=== PATIENT | male | born 1985 | race Hispanic/Latino ===

== ENCOUNTER 2020-06-14 08:48 | Emergency (ER) | payer OTHER ==
[2020-06-14] MEDS ORDERED: KETOROLAC 30 MG/ML 1ML VIAL As Ordered ONE (11:08)
[2020-06-14] MEDS ORDERED: KETOROLAC 30 MG/ML 1ML VIAL ONE (11:08)
[2020-06-14] MEDS ORDERED: LIDOCAINE 5% (LIDODERM) PATCH As Ordered ONE (11:08)
[2020-06-14] MEDS ORDERED: LIDOCAINE 5% (LIDODERM) PATCH ONE (11:08)
[2020-06-14] MEDS ORDERED: CYCLOBENZAPRINE 10MG TABLET As Ordered ONE (11:09)
[2020-06-14] MEDS ORDERED: CYCLOBENZAPRINE 10MG TABLET ONE (11:09)
== END 2020-06-14 10:11 | disposition home or self-care (01) ==
LOC: M ED 08:48
DX: S32.038A Other fracture of third lumbar vertebra, initial encounter for closed fracture (principal); S39.012A Strain of muscle, fascia and tendon of lower back, initial encounter; X50.9XXA Other and unspecified overexertion or strenuous movements or postures, initial encounter; Y92.89 Other specified places as the place of occurrence of the external cause; Y93.B9 Activity, other involving muscle strengthening exercises; M51.27 Other intervertebral disc displacement, lumbosacral region; Z88.0 Allergy status to penicillin; Z88.1 Allergy status to other antibiotic agents; E73.9 Lactose intolerance, unspecified
CPT/HCPCS: 72131; 96372; 99282; J1885

== ENCOUNTER 2020-11-13 01:15 | Emergency (ER) | payer OTHER ==
[~2020-11-13] VITALS: Ht 170.2 cm; Wt 81.4 kg
--- OUTSIDE RECORDS SUMMARY | 2020-11-13 01:21 | CCD | Continuity of Care Document ---
Author Author Wally ALMARAZ PA Organization Unknown Address [address] [place] [address], [address] [place] [address] Phone [phone] Care Team Providers Care Marketing Research Analyst Name Role Phone Tarun Khalil MD AUTM Unavailable January PADILLA AUTM [phone] Problems Description No Information Available Social History Type Date Description Comments Sex Unknown Allergies, Adverse Reactions, Alerts Description No Information Available Medications Active Medications SIG Qnty Indications Ordering Provide r Date Tizanidine HCL 4mg Capsules 1 by mouth three times a day 60caps DJeremy Caballero MD 07/04 Tramadol HCL 50mg Tablets 1 every 6 hours as needed pain 15tabs S32.038A Lotus Carney MD 0 Immunizations Description No Information Available Vital Signs Date Vital Result Comment 06/15/2020 12:34pm Body Temperature 97.6 F Height 67 inches 5'7" Weight 175.00 lb BMI (Body Mass Index) 27.4 kg/m2 Results Description No Information Available Procedures Date Code Description Status 09/18/2020 71864 X-Ray Spine Lumbosacral Ap & Lat eral 2-3 Views Completed 08/13/2020 99290 X-Ray Spine Lumbosacral Ap & Lat eral 2-3 Views Completed 07/27/2020 70404 X-Ray Spine Lumbosacral Ap & Lat eral 2-3 Views Completed 07/12/2020 33097 X-Ray Spine Lumbosacral Ap & Lat eral 2-3 Views Completed 06/22/2020 41810 X-Ray Spine Lumbosacral Ap & Lat eral 2-3 Views Completed 06/15/2020 62477 X-Ray Spine Thoracolumbar Ap & L ateral 2 Views Completed 06/15/2020 92715 FX CL Vertebral Body Wi Cast/Bra ce Completed Medical Devices Description No Information Available Encounters Type Date Location Provider Dx Diagnosis Office Visit 08/13/2020 3:00p [place] PADILLA De Los Santos S32.038D Oth fracture of third lum vertebra, subs for fx w routn heal Office Visit 07/27/2020 1:45p [place] PADILLA De Los Santos S32.038D Oth fracture of third lum vertebra, subs for fx w routn heal Office Visit 07/12/2020 2:30p [place] PADILLA De Los Santos S32.038D Oth fracture of third lum vertebra, subs for fx w routn heal Office Visit 07/04/2020 11:00a [place] PADILLA De Los Santos S32.038D Oth fracture of third lum vertebra, subs for fx w routn heal Office Visit 06/22/2020 11:30a [place] PADILLA De Los Santos S32.038D Oth fracture of third lum vertebra, subs for fx w routn heal Office Visit 06/15/2020 2:45p [place] PADILLA De Los Santos S32.038A Oth fracture of third lumbar vertebra, init for clos fx Assessments Date Code Description Provider 09/18/2020 S32.038D Other fracture of th ird lumbar vertebra, subsequent encounter for fracture with routine healing PADILLA De [place] Santos 08/13/2020 S32.038D Other fracture of th ird lumbar vertebra, subsequent encounter for fracture with routine healing PADILLA De [place] 07/27/2020 S32.038D Other fracture of th ird lumbar vertebra, subsequent encounter for fracture with routine healing PADILLA De [place] 07/12/2020 S32.038D Other fracture of th ird lumbar vertebra, subsequent encounter for fracture with routine healing PADILLA De [place] 07/04/2020 S32.038D Other fracture of th ird lumbar vertebra, subsequent encounter for fracture with routine healing PADILLA De [place] 06/22/2020 S32.038D Other fracture of th ird lumbar vertebra, subsequent encounter for fracture with routine healing PADILLA De [place] 06/15/2020 S32.038A Other fracture of th ird lumbar vertebra, initial encounter for closed fracture PADILLA De [place] 06/15/2020 S32.038A Other fracture of th ird lumbar vertebra, initial encounter for closed fracture PADILLA De [place] Plan of Treatment 09/18/2020 - PADILLA De [place]* S32.038D Other fracture of third lumbar vertebra, subsequent encounter for fracture with routine healing* Follow up:* 4 weeks with iid back re-check Functional Status Description No Information Available Mental Status Description No Information Available Referrals Refer to Dr Reason for Referral Status Appt Date Shan Almaraz I, Pac PT PER [employer] APPROVAL; FOR 16 VISITS TO BE DONE ON BASE ON LS-SPINE TO CHART NT Created [address] [place] [address] [phone] Shan Almaraz I, Pac DME PER [employer] WEB NO AUTH R EQUIRED FOR VISTA LSO 637) TO [facility] NT Created [address] [place] [phone] Shan Almaraz I, Pac Office Consult New Or Established Pt. Lo w Back Pain. CM Created [address] [place] [address] [phone] Shan Almaraz I, Pac Office/Outpatient Visit Est. Low Back Pain. CM Created [address] [place] [address] [phone] Shan Almaraz I, Pac Office Consult New Or Establ ished Pt. Fracture Thoracic Vertebra. CM Created [facility] [address] [phone] Shan Almaraz I, Pac Office/Outpatient Visit Est. Fracture Thoracic Vertebra. CM Created [address] [place] [phone]
--- OUTSIDE RECORDS SUMMARY | 2020-11-13 01:21 | CCD | Continuity of Care Document ---
Author Author Wally ALMARAZ PA Organization Unknown Address [address] [place] [address], [address] [place] [address] Phone [phone] Care Team Providers Care Company Miner [employer] Name Role Phone Tarun Khalil MD AUTM Unavailable January PADILLA AUTM [phone] Problems Description No Information Available Social History [...] Available Vital Signs Date Vital Result Comment 10/16/2020 4:42pm Body Temperature 97.3 F 06/15/2020 12:34pm Body Temperature 97.6 F Height 67 inches 5'7" Weight 175.00 lb BMI (Body Mass Index) 27.4 kg/m2 Results Description No Information Available Procedures Date Code Description Status 10/16/2020 68197 X-Ray Spine Lumbosacral Ap & Lat eral 2-3 Views Completed 09/18/2020 57788 X-Ray Spine Lumbosacral Ap & Lat eral 2-3 Views Completed 08/13/2020 66445 X-Ray Spine Lumbosacral Ap & Lat eral 2-3 Views Completed 07/27/2020 67653 X-Ray Spine Lumbosacral Ap & Lat eral 2-3 Views Completed 07/12/2020 98130 X-Ray Spine Lumbosacral Ap & Lat eral 2-3 Views Completed 06/22/2020 60490 X-Ray Spine Lumbosacral Ap & Lat eral 2-3 Views Completed 06/15/2020 62568 X-Ray Spine Thoracolumbar Ap & L ateral 2 Views Completed 06/15/2020 85148 FX CL Vertebral Body Wi Cast/Bra ce Completed Medical Devices Description No Information Available Encounters Type Date Location Provider Dx Diagnosis Office Visit 10/16/2020 3:45p [place] PADILLA De Los Santos S32.038D Oth fracture of third lum vertebra, subs for fx w routn heal Office Visit 09/18/2020 3:45p [place] PADILLA De Los Santos S32.038D Oth fracture of third lum vertebra, subs for fx w routn heal Office Visit 08/13/2020 3:00p [place] PADILLA De Los Santos S32.038D Oth fracture of third lum vertebra, subs for fx w routn heal Office Visit 07/27/2020 1:45p [place] PADILLA De Los Santos S32.038D Oth fracture of third lum vertebra, subs for fx w routn heal Office Visit 07/12/2020 2:30p [place] PADILLA De Los Santos S32.038D Oth fracture of third lum vertebra, subs for fx w routn heal Office Visit 07/04/2020 11:00a [place] PADILLA De Los Santos S32.038D Oth fracture of third lum vertebra, subs for fx w routn heal Office Visit 06/22/2020 11:30a [place] PADILLA De Los Santos S32.038D Oth fracture of third lum vertebra, subs for fx w routn heal Office Visit 06/15/2020 2:45p [place] PADILLA De Los Santos S32.038A Oth fracture of third lumbar vertebra, init for clos fx Assessments Date Code Description Provider 10/16/2020 S32.038D Other fracture of th ird lumbar vertebra, subsequent encounter for fracture with routine healing PADILLA De [place] Santos 09/18/2020 S32.038D Other fracture of th ird [...] PADILLA De Los Santos Plan of Treatment Future Appointment(s):* 11/16/2020 12:20 pm - PADILLA De Los Santos at [place] 10/16/2020 - PADILLA De Los Santos* S32.038D Other fracture of third lumbar vertebra, subsequent encounter for fracture with routine healing* Follow up:* 4 weeks with IID via telemed for back recheck Functional Status Description No Information Available Mental Status Description No Information Available Referrals Refer to Dr Reason for Referral Status Appt Date Shan Almaraz Pac PT PER [employer] APPROVAL; FOR 16 VISITS TO BE DONE ON BASE ON LS-SPINE TO CHART NT Created [facility] [address] [place] [address] [phone] Shan Almaraz Pac DME PER [employer] WEB NO AUTH R EQUIRED FOR VISTA LSO 637) TO ALEC NT Created [facility] [address] [address] [phone] Shan Almaraz Pac Office Consult New Or Established Pt. Lo w Back Pain. Created [address] [place] [address] [phone] Shan Almaraz I, Pac Office/Outpatient Visit Est. Low Back Pain. Created [address] [place] [address] [phone] Shan Almaraz I, Pac Office Consult New [place] Establ ished Pt. Fracture Thoracic Vertebra. Created [address] [place] [address] [phone] Shan Almaraz I, Pac Office/Outpatient Visit Est. Fracture Thoracic Vertebra. Created [address] [place] [address] [phone]
--- OUTSIDE RECORDS SUMMARY | 2020-11-13 01:21 | CCD | Continuity of Care Document ---
Author Author Wally ALMARAZ PA Organization Unknown Address [address] [place] [address], [address] [place] [address] Phone [phone] Care Team Providers Care Associate Consulting Engineer Name Role Phone Tarun Khalil MD AUTM Unavailable January PADILLA AUTM [phone] Problems Description No Information Available Social History [...] Available Procedures Date Code Description Status 09/18/2020 00412 X-Ray Spine Lumbosacral Ap & Lat eral 2-3 Views Completed 08/13/2020 53717 X-Ray Spine Lumbosacral Ap & Lat eral 2-3 Views Completed 07/27/2020 11693 X-Ray Spine Lumbosacral Ap & Lat eral 2-3 Views Completed 07/12/2020 21511 X-Ray Spine Lumbosacral Ap & Lat eral 2-3 Views Completed 06/22/2020 36446 X-Ray Spine Lumbosacral Ap & Lat eral 2-3 Views Completed 06/15/2020 55195 X-Ray Spine Thoracolumbar Ap & L ateral 2 Views Completed 06/15/2020 91141 FX CL Vertebral Body Wi Cast/Bra ce Completed Medical Devices Description No Information Available Encounters Type Date Location Provider Dx Diagnosis Office Visit 09/18/2020 3:45p [place] PADILLA De Los Santos S32.038D Oth fracture of third lum vertebra, subs for fx w routn heal Office Visit 08/13/2020 3:00p [place] PADILLA De Los Santos S32.038D Oth fracture of third lum vertebra, subs for fx w routn heal Office Visit 07/27/2020 1:45p [place] PADILLA De Los Santos S32.038D Oth fracture of third lum vertebra, subs for fx w routn heal Office Visit 07/12/2020 2:30p [place] PADILLA De Los Santos S32.038D Oth fracture of third lum vertebra, subs for fx w routn heal Office Visit 07/04/2020 11:00a [place] PADILLA De Los Santos S32.038D Oth fracture of third lum vertebra, subs for fx w routn heal Office Visit 06/22/2020 11:30a [place] PADILLA De Los Santos S32.038D Oth fracture of third lum vertebra, subs for fx w routn heal Office Visit 06/15/2020 2:45p [place] PADILLA De Los Santos S32.038A Oth fracture [...] [place] Plan of Treatment Future Appointment(s):* 10/16/2020 3:45 pm - PADILLA De Los Santos at [place] 09/18/2020 - PADILLA De Los Santos* S32.038D Other fracture of third lumbar vertebra, subsequent encounter for fracture with routine healing* Follow up:* 4 weeks with IID back re-check Functional Status Description No Information Available Mental Status Description No Information Available Referrals Refer to Dr Reason for Referral Status Appt Date Shan Almaraz I, Pac PT PER [employer] APPROVAL; FOR 16 VISITS TO BE DONE ON BASE ON LS-SPINE TO CHART NT Created [facility] [place] [address] [phone] Shan Almaraz I, Pac DME PER [employer] WEB NO AUTH R EQUIRED FOR VISTA LSO 637) TO [facility] NT Created [address] [place] [phone] Shan Almaraz I, Pac Office Consult New Or Established Pt. Lo w Back Pain. CM Created [place] [address] [phone] Shan Almaraz I, Pac Office/Outpatient Visit Est. Low Back Pain. CM Created [place] [address] [phone] Shan Almaraz I, Pac Office Consult New [place] Establ ished Pt. Fracture Thoracic Vertebra. CM Created [facility] [address] [address] [phone] Shan Almaraz I, Pac Office/Outpatient Visit Est. Fracture Thoracic Vertebra. CM Created [facility] [address] [address] [phone]
--- OUTSIDE RECORDS SUMMARY | 2020-11-13 01:21 | CCD | Continuity of Care Document ---
Author Author Wally ALMARAZ PA Organization Unknown Address [address] [facility], [address] [place] [address] Phone [phone] Care Team Providers Care Dried Yeast Supervisor Name Role Phone Tarun Khalil MD AUTM Unavailable January PADILLA AUTM [phone] Problems Description No Information Available Social History [...] Available Procedures Date Code Description Status 10/16/2020 85957 X-Ray Spine Lumbosacral Ap & Lat eral 2-3 Views Completed 09/18/2020 29507 X-Ray Spine Lumbosacral Ap & Lat eral 2-3 Views Completed 08/13/2020 40269 X-Ray Spine Lumbosacral Ap & Lat eral 2-3 Views Completed 07/27/2020 09269 X-Ray Spine Lumbosacral Ap & Lat eral 2-3 Views Completed 07/12/2020 77284 X-Ray Spine Lumbosacral Ap & Lat eral 2-3 Views Completed 06/22/2020 35942 X-Ray Spine Lumbosacral Ap & Lat eral 2-3 Views Completed 06/15/2020 86353 X-Ray Spine Thoracolumbar Ap & L ateral 2 Views Completed 06/15/2020 36201 FX CL Vertebral Body Wi Cast/Bra ce Completed Medical Devices Description No Information Available Encounters Type Date Location Provider Dx Diagnosis Office Visit 09/18/2020 3:45p [place] PADILLA De Los Santos S32.038D Oth fracture of third lum vertebra, subs for fx w routn heal Office Visit 08/13/2020 3:00p [place] PADILLA De Los Santos S32.038D Oth fracture of third lum vertebra, subs for fx w routn heal Office Visit 07/27/2020 1:45p [place] PADILLA De Los Santos S32.038D Oth fracture of third lum vertebra, subs for fx w routn heal Office Visit 07/12/2020 2:30p [place] PADILLA De Los Santos S32.038D Oth fracture of third lum vertebra, subs for fx w routn heal Office Visit 07/04/2020 11:00a [place] PADILLA De Los Santos S32.038D Oth fracture of third lum vertebra, subs for fx w routn heal Office Visit 06/22/2020 11:30a [place] PADILLA De Los Santos S32.038D Oth fracture of third lum vertebra, subs for fx w routn heal Office Visit 06/15/2020 2:45p [place] PADILLA De Los Santos S32.038A Oth fracture [...] PADILLA De Los Santos Plan of Treatment 10/16/2020 - PADILLA De [place]* S32.038D [...] BASE ON LS-SPINE TO CHART NT Created [address] [place] [address] [phone] Shan Almaraz I, Pac DME PER [employer] WEB NO AUTH R EQUIRED FOR VISTA LSO 637) TO ALEC NT Created [address] [place] [phone] Shan Almaraz I, Pac Office Consult New Or Established Pt. Lo w Back Pain. CM Created [address] [place] [address] [phone] Shan Almaraz I, Pac Office/Outpatient Visit Est. Low Back Pain. CM Created [address] [place] [address] [phone] Shan Almaraz I, Pac Office Consult New [place] Establ ished Pt. Fracture Thoracic Vertebra. CM Created [address] [place] [address] [phone] Shan Almaraz I, Pac Office/Outpatient Visit Est. Fracture Thoracic Vertebra. Created [address] [place] [address] [phone]
--- OUTSIDE RECORDS SUMMARY | 2020-11-13 01:22 | CCD | Continuity of Care Document ---
Author Author Wally ALMARAZ PA Organization Unknown Address [address] [place] [address], [address] [place] [address] Phone [phone] Care Team Providers Care Nitriles Lab Technician Name Role Phone Tarun Khalil MD [facility] Unavailable Problems Description No Information Available Social History [...] Information Available Procedures Date Code Description Status 08/13/2020 86329 X-Ray Spine Lumbosacral Ap & Lat eral 2-3 Views Completed 07/27/2020 12526 X-Ray Spine Lumbosacral Ap & Lat eral 2-3 Views Completed 07/12/2020 80043 X-Ray Spine Lumbosacral Ap & Lat eral 2-3 Views Completed 06/22/2020 65715 X-Ray Spine Lumbosacral Ap & Lat eral 2-3 Views Completed 06/15/2020 69019 X-Ray Spine Thoracolumbar Ap & L ateral 2 Views Completed 06/15/2020 45740 FX CL Vertebral Body Wi Cast/Bra ce Completed Medical Devices Description No Information Available Encounters Type Date Location Provider Dx Diagnosis Office Visit 08/13/2020 3:00p [place] PADILLA De Los Santos S32.038D Oth fracture of third lum vertebra, subs for fx w routn heal Office Visit 07/27/2020 1:45p [place] PADILLA De Los Santos S32.038D Oth fracture of third lum vertebra, subs for fx w routn heal Office Visit 07/12/2020 2:30p [place] PADILLA De Los Santos S32.038D Oth fracture of third lum vertebra, subs for fx w routn heal Office Visit 07/04/2020 11:00a [place] PADILLA De Los Santos S32.038D Oth fracture of third lum vertebra, subs for fx w routn heal Office Visit 06/22/2020 11:30a [place] PADILLA De Los Santos S32.038D Oth fracture of third lum vertebra, subs for fx w routn heal Office Visit 06/15/2020 2:45p [place] PADILLA De Los Santos S32.038A Oth fracture of third lumbar vertebra, init for clos fx Assessments Date Code Description Provider 08/13/2020 S32.038D Other fracture of th ird [...] [place] Plan of Treatment Future Appointment(s):* 09/18/2020 3:45 pm - PADILLA De Los Santos at [place] 08/13/2020 - PADILLA De Los [place]* S32.038D Other fracture of third lumbar vertebra, subsequent encounter for fracture with routine healing* Follow up:* 4-6 weeks with IID for back recheck with lumbar xrays Functional Status Description No Information Available Mental Status Description No Information Available Referrals Refer to Dr Reason for Referral Status Appt Date Shan Almaraz I, Pac PT PER [employer] APPROVAL; FOR 16 VISITS TO BE DONE ON BASE ON LS-SPINE TO CHART NT Created [address] [place] [address] [phone] Shan Almaraz I, Pac DME PER [employer] WEB NO AUTH R EQUIRED FOR VISTA LSO 637) TO [facility] NT Created [address] [place] [address] [phone] Shan Almaraz I, Pac Office Consult New Or Established Pt. Lo w Back Pain. CM Created [address] [place] [address] [phone] Shan Almaraz I, Pac Office/Outpatient Visit Est. Low Back Pain. CM Created [facility] [place] [address] [phone] Shan Almaraz I, Pac Office Consult New [place] Establ ished Pt. Fracture Thoracic Vertebra. CM Created [facility] [place] [address] [phone] Shan Almaraz I, Pac Office/Outpatient Visit Est. Fracture Thoracic Vertebra. CM Created [facility] [place] [address] [phone]
--- OUTSIDE RECORDS SUMMARY | 2020-11-13 01:22 | CCD ---
Author Author [facility] Organization [facility] Address Unknown Phone Unavailable Care Team Providers Care Currency Exchange Specialist Name Role Phone DRAZEK, I SHANNAN PA Unavailable Unavailable DRAZEK, I SHANNAN PA Unavailable Unavailable DRAZEK, I SHANNAN PA Unavailable Unavailable DRAZEK, I SHANNAN PA Unavailable Unavailable DRAZEK, I SHANNAN PA Unavailable Unavailable DRAZEK, I SHANNAN PA Unavailable Unavailable DRAZEK, I SHANNAN PA Unavailable Unavailable DRAZEK, I SHANNAN PA Unavailable Unavailable DRAZEK, I SHANNAN PA Unavailable Unavailable DRAZEK, I SHANNAN PA Unavailable Unavailable DRAZEK, I SHANNAN PA Unavailable Unavailable DRAZEK, I SHANNAN PA Unavailable Unavailable DRAZEK, I SHANNAN PA Unavailable Unavailable DRAZEK, I SHANNAN PA Unavailable Unavailable DRAZEK, I SHANNAN PA Unavailable Unavailable DRAZEK, I SHANNAN PA Unavailable Unavailable DRAZEK, I SHANNAN PA Unavailable Unavailable DRAZEK, I SHANNAN PA Unavailable Unavailable DRAZEK, I SHANNAN PA Unavailable Unavailable DRAZEK, I SHANNAN PA Unavailable Unavailable DRAZEK, I SHANNAN PA Unavailable Unavailable DRAZEK, I SHANNAN PA Unavailable Unavailable DRAZEK, I SHANNAN PA Unavailable Unavailable DRAZEK, I SHANNAN PA Unavailable Unavailable DRAZEK, I SHANNAN PA Unavailable Unavailable DRAZEK, I SHANNAN PA Unavailable Unavailable DRAZEK, I SHANNAN PA Unavailable Unavailable DRAZEK, I SHANNAN PA Unavailable Unavailable DRAZEK, I SHANNAN PA Unavailable Unavailable DRAZEK, I SHANNAN PA Unavailable Unavailable Re-disclosure Warning The records that you are about to access may contain information from federally-assisted alcohol or drug abuse programs. If such information is present, then the following federally mandated warning applies: This information has been disclosed to you from records protected by federal confidentiality rules (42 CFR part 2). The federal rules prohibit you from making any further disclosure of this information unless further disclosure is expressly permitted by the written consent of the person to whom it pertains or as otherwise permitted by 42 CFR part 2. A general authorization for the release of medical or other information is NOT sufficient for this purpose. The Federal rules restrict any use of the information to criminally investigate or prosecute any alcohol or drug abuse patient.The records that you are about to access may contain highly sensitive health information, the redisclosure of which is protected by Article 27-F of the [facility] Public Health law. If you continue you may have access to information: Regarding HIV / AIDS; Provided by facilities licensed or operated by the [facility] Office of Mental Health; or Provided by the [facility] Office for People With Developmental Disabilities. If such information is present, then the following [facility] mandated warning applies: This information has been disclosed to you from confidential records which are protected by state law. State law prohibits you from making any further disclosure of this information without the specific written consent of the person to whom it pertains, or as otherwise permitted by law. Any unauthorized further disclosure in violation of state law may result in a fine or intermediate sentence or both. A general authorization for the release of medical or other information is NOT sufficient authorization for further disc losure. Encounters Encounter Providers Location Date Indications Data Source(s ) Outpatient Attender: SHANNAN CAUSEY Physical Therapy 10/16/2020 0 2:45:00 PM EST [facility] ([facility]) Outpatient Attender: SHANNAN CAUSEY Physical Therapy 09/18/2020 0 2:45:00 PM EST [facility] ([facility]) Office Visit Attender: SHANNAN CAUSEY Physical Therapy 2019 03:00:00 PM EDT [facility] ([facility]) Office Visit Attender: SHANNAN CAUSEY Physical Therapy 2019 01:45:00 PM EDT [facility] ([facility]) Office Visit Attender: SHANNAN CAUSEY Physical Therapy 2019 02:30:00 PM EDT [facility] ([facility]) Office Visit Attender: SHANNAN CAUSEY Physical Therapy 2019 11:00:00 AM EDT [facility] ([facility]) Office Visit Attender: SHANNAN CAUSEY Physical Therapy 2019 11:30:00 AM EDT [facility] ([facility]) OFFICE OUTPATIENT NEW 30 MINUTES Attender: SHANNAN CAUSEY Physic al Therapy 06/15/2020 02:45:00 PM EDT [facility] ([facility]) Medications Medication Brand Name Start Date Product Form Dose Route Admi nistrative Instructions Pharmacy Instructions Status Indications Reaction Description Data Source(s) 4 mg 07/04/2020 12:00:00 AM EDT capsule 60 TAKE ONE CAPSULE BY MOUTH THREE TIMES A DAY TAKE ONE CAPSULE BY MOUTH THREE TIMES A DAY SOLD: 07/06/2020 [facility] tizanidine 4 MG Oral Capsule Tizanidine HCL 07/04/2020 12:00:00 AM EDT ORAL active [facility] ([facility]) 50 mg 06/15/2020 12:00:00 AM EDT tablet 15 TAKE 1 TABLET BY MOUTH EVERY 6 HOURS NEEDED FOR PAIN MAXIMUM DAILY DOSE = 4 TAKE 1 TABLET BY MOUTH EVERY 6 HOURS NEEDED FOR PAIN MAXIMUM DAILY DOSE = 4 SOLD: 06/20/2020 [facility] tramadol hydrochloride 50 MG Oral Tablet Tramadol HCL 06/15/2020 12:00:00 AM EDT active [facility] ([facility]) 800 mg 06/14/2020 12:00:00 AM EDT tablet 20 TAKE ONE TABLET BY MOUTH EVERY 6 TO 8 HOURS NEEDED FOR PAIN TAKE ONE TABLET BY MOUTH EVERY 6 TO 8 HO URS NEEDED FOR PAIN SOLD: 06/14/2020 [facility] 5 % 06/14/2020 12:00:00 AM EDT adhesive patch,medicate d 30 APPLY TO AFFECTED AREA(S) ONCE DAILY NEEDED FOR PAIN REMOVE IN LESS THAN 12 HOURS APPLY TO AFFECTED AREA(S) ONCE DAILY NEEDED FOR PAIN REMOVE IN LESS THAN 12 HOURS SOLD: 06/14/2020 [facility] Cyclobenzaprine hydrochloride 5 MG Oral Tablet CYCLOBENZAPRI NE HCL 06/14/2020 12:00:00 AM EDT tablet 10 TAKE ONE TABLET BY MOUTH TWICE A DAY NEEDED FOR SPASMS TAKE ONE TABLET BY MOUTH TWICE A DAY NEEDED FOR SPA SMS SOLD: 06/14/2020 [facility] Insurance Providers Payer name Policy type / Coverage type Policy ID Covered alliance party ID Covered alliance party's relationship to shankar Policy Shankar Plan Information CHRI[employer]Y [employer]O [employer] DUTY [id number] CHRISTY MEDRANO HUMANA - O/P [id number] 18 [id number] Surgeries/Procedures Procedure Description Date Indications Data Source(s) RADEX SPINE LUMBOSACRAL 2/3 VIEWS 10/16/2020 12:00:00 AM EST [facility] ([facility] RADEX SPINE LUMBOSACRAL 2/3 VIEWS 09/18/2020 12:00:00 AM EST [facility] ([facility] RADEX SPINE LUMBOSACRAL 2/3 VIEWS 08/13/2020 12:00:00 AM EDT [facility] ([facility] RADEX SPINE LUMBOSACRAL 2/3 VIEWS 07/27/2020 12:00:00 AM EDT [facility] ([facility] RADEX SPINE LUMBOSACRAL 2/3 VIEWS 07/12/2020 12:00:00 AM EDT [facility] ([facility] RADEX SPINE LUMBOSACRAL 2/3 VIEWS 06/22/2020 12:00:00 AM EDT [facility] ([facility] ) CLTX VRT BDY FX W/O MANJ REQ&W/CSTING/BRACING 06/15/20 20 12:00:00 AM EDT [facility] ([facility] X-Ray Spine Thoracolumbar Ap & Lateral 2 Views 020 12:00:00 AM EDT [facility] ([facility] Vital Signs ID Date Data Source UNK Name Value Range Interpretation Code Description Data Source(s) Body temperature 97.3 [degF] 97.3 [degF] [facility] ([facility] Body mass index (BMI) [Ratio] 27.4 kg/m2 27.4 k g/m2 [facility] ([facility] Body weight 175.00 [lb_av] 175.00 [lb_av] [facility] ([facility] Body height 67 [in_i] 67 [in_i] [facility] ([facility] 5'7" Body temperature 97.6 [degF] 97.6 [degF] [facility] ([facility])
[2020-11-13 03:03] LABS: BASO % 0.3 % (0.0-1.0); EOS # 0.7 10^3/uL (0.0-0.5); EOS % 7.3 % (0.0-3.0); HEMATOCRIT 48.5 % (42.0-52.0); HEMOGLOBIN 16.5 g/dl (13.5-17.5); LYMPH # 3.5 10^3/uL (1.5-5.0); LYMPH % 34.6 % (24.0-44.0); MEAN CORPUSCULAR HEMOGLOBIN 30.9 pg (27.0-33.0); MEAN CORPUSCULAR VOLUME 90.8 fl (80.0-96.0); MONO # 0.7 10^3/uL (0.0-0.8); MONO % 7.2 % (0.0-5.0); NEUTROPHILS # 5.1 10^3/uL (1.5-8.5); NEUTROPHILS % 50.3 % (36.0-66.0); PLATELET COUNT, AUTOMATED 269 10^3/uL (150-450); RED BLOOD COUNT 5.34 10^6/uL (4.30-6.10)
--- OUTSIDE RECORDS SUMMARY | 2020-11-13 03:27 | CCD ---
Author Author [facility] Organization [facility] Address Unknown Phone Unavailable Care Team Providers Care Dry Room Attendant Name Role Phone DRAZEK, I SHANNAN PA [...] is protected by Article 27-F of the [facility] Public Health law. If you continue you may have access to information: Regarding HIV / AIDS; Provided by facilities licensed or operated by the [facility] Office of Mental Health; or Provided by the [facility] Office for People With Developmental Disabilities. If such information is present, then the following [facility] mandated warning applies: This information has been [...] law may result in a fine or snf sentence or both. A general authorization for the release of medical or other information is NOT sufficient authorization for further disc losure. Encounters Encounter Providers Location Date Indications Data Source(s ) Outpatient Attender: SHANNAN CAUSEY Physical Therapy 10/16/2020 0 2:45:00 PM EST [facility] ([facility]) Outpatient Attender: SHANNAN CAUSEY Physical Therapy 09/18/2020 0 2:45:00 PM EST [facility] ([facility]) Office Visit Attender: SHANNAN CAUSEY Physical Therapy 2019 03:00:00 PM EDT [facility] ([facility]) Office Visit Attender: SHANNAN CAUSEY Physical Therapy 2019 01:45:00 PM EDT [facility] ([facility]) Office Visit Attender: SHANNAN CAUSEY Physical Therapy 2019 02:30:00 PM EDT [facility] ([facility]) Office Visit Attender: SHANNAN CAUSEY Physical Therapy 2019 11:00:00 AM EDT [facility] ([facility]) Office Visit Attender: SHANNAN CAUSEY Physical Therapy 2019 11:30:00 AM EDT [facility] ([facility]) OFFICE OUTPATIENT NEW 30 MINUTES Attender: SHANNAN CAUSEY Physic al Therapy 06/15/2020 02:45:00 PM EDT [facility] ([facility]) Medications Medication Brand [...] 07/04/2020 12:00:00 AM EDT ORAL active [facility] ([facility]) 50 mg 06/15/2020 12:00:00 [...] DAY NEEDED FOR SPA SMS SOLD: 06/14/2020 [facility] Insurance Providers Payer name Policy type / Coverage type Policy ID Covered constitution party ID Covered constitution party's relationship to shankar Policy Shankar Plan Information [employer]RI[employer]Y MEDRANO ACT[employer] DUTY [id number] CHRISTY MEDRANO HUMANA - O/P [id number] 18 [id number] Surgeries/Procedures Procedure Description Date Indications Data Source(s) RADEX SPINE LUMBOSACRAL 2/3 VIEWS 10/16/2020 12:00:00 AM EST [facility] ([facility] RADEX SPINE LUMBOSACRAL 2/3 VIEWS 09/18/2020 12:00:00 AM EST [facility] ([facility] ) RADEX SPINE LUMBOSACRAL 2/3 VIEWS 08/13/2020 12:00:00 AM EDT [facility] ([facility] ) RADEX SPINE LUMBOSACRAL 2/3 VIEWS 07/27/2020 12:00:00 AM EDT [facility] ([facility]) RADEX SPINE LUMBOSACRAL 2/3 VIEWS 07/12/2020 12:00:00 AM EDT [facility] ([facility]) RADEX SPINE LUMBOSACRAL 2/3 VIEWS 06/22/2020 12:00:00 AM EDT [facility] ([facility]) CLTX VRT BDY FX W/O MANJ REQ&W/CSTING/BRACING 06/15/20 20 12:00:00 AM EDT [facility] ([facility]) X-Ray Spine Thoracolumbar Ap & Lateral 2 Views 020 12:00:00 AM EDT [facility] ([facility]) Vital Signs ID Date Data Source UNK Name Value Range Interpretation Code Description Data Source(s) Body temperature 97.3 [degF] 97.3 [degF] [facility] ([facility] Body mass index (BMI) [Ratio] 27.4 kg/m2 27.4 k g/m2 [facility] ([facility]) Body weight 175.00 [lb_av] 175.00 [lb_av] [facility] T ([facility]) Body height 67 [in_i] 67 [in_i] [facility] ([facility]) 5'7" Body temperature 97.6 [degF] 97.6 [degF] [facility] ([facility])
[2020-11-13 03:38] LABS: ALBUMIN 4.4 GM/DL (3.2-5.2); ALT/SGPT 59 U/L (12-78); BILIRUBIN,DIRECT 0.1 MG/DL (0.0-0.2); BILIRUBIN,TOTAL 0.5 MG/DL (0.2-1.0); BLOOD UREA NITROGEN 15 MG/DL (7-18); CALCIUM LEVEL 8.8 MG/DL (8.5-10.1); CARBON DIOXIDE LEVEL 29 MEQ/L (21-32); CHLORIDE LEVEL 105 MEQ/L (98-107); CK-MB VALUE MASS 1.4 NG/ML (<3.6); CPK CREATINE PHOSPHOKINASE 216 U/L (39-308); CREATININE FOR GFR 1.09 MG/DL (0.70-1.30); GLOMERULAR FILTRATION RATE > 60.0 (>60); GLUCOSE, FASTING 87 MG/DL (70-100); MB/CK RELATIVE INDEX 0.65 (< OR =4); NT-PRO BNP 9 PG/ML (<125); POTASSIUM SERUM 3.9 MEQ/L (3.5-5.1); SODIUM LEVEL 140 MEQ/L (136-145); TOTAL PROTEIN 7.9 GM/DL (6.4-8.2); TROPONIN I < 0.02 NG/ML (< 0.10)
[2020-11-13] MEDS ORDERED: IPRATROPIUM 0.5MG/ALBUTEROL 2.5MG INH SOL UD 3ML (DUONEB) NEB ONE (04:00)
[2020-11-13] MEDS ORDERED: methylPREDNISolone 125MG 2ML VIAL IV ONE (04:00)
[2020-11-13] MEDS ORDERED: ISOVUE-370 76% 100ML VIAL As Ordered ONE (04:07)
--- NOTE | 2020-11-13 04:10 | REPVR ---
PROCEDURE INFORMATION: Exam: XR Chest, 1 View Exam date and time: 11/13/2020 3:26 AM Age: 35 years old Clinical indication: Cough and dyspnea; Additional info: Dyspnea/cough TECHNIQUE: Imaging protocol: XR of the chest Views: 1 view. COMPARISON: No relevant prior studies available. FINDINGS: Lungs: Unremarkable. No consolidation. Pleural space: Unremarkable. No pleural effusion. No pneumothorax. Heart/Mediastinum: Unremarkable. No cardiomegaly. Bones/joints: Unremarkable. IMPRESSION: No acute findings. Electronically signed by: Red Dodson On 11/13/2020 04:10:52 AM
--- NOTE | 2020-11-13 04:27 | REPVR ---
PROCEDURE INFORMATION: Exam: CT Angiography Chest With Contrast Exam date and time: 11/13/2020 4:00 AM Age: 35 years old Clinical indication: Shortness of breath; Additional info: Shortness of breatg TECHNIQUE: Imaging protocol: Computed tomographic angiography of the chest with intravenous contrast. 3D rendering (Not supervised by radiologist): MIP and/or 3D reconstructed images were created by the technologist. Radiation optimization: All CT scans at this facility use at least one of these dose optimization techniques: automated exposure control; mA and/or kV adjustment per patient size (includes targeted exams where dose is matched to clinical indication); or iterative reconstruction. Contrast material: IOS; Contrast volume: 75 ml; Contrast route: INTRAVENOUS (IV); COMPARISON: CR PORTABLE CHEST X-RAY 11/13/2020 3:12 AM FINDINGS: Pulmonary arteries: Normal. No pulmonary emboli. Aorta: Unremarkable. No aortic aneurysm. No aortic dissection. Lungs: Unremarkable. No consolidation. No masses. Pleural space: Unremarkable. No pneumothorax. No pleural effusion. Heart: Unremarkable. No cardiomegaly. No pericardial effusion. Lymph nodes: Unremarkable. No enlarged lymph nodes. Bones/joints: Unremarkable. No acute fracture. Soft tissues: Unremarkable. IMPRESSION: No acute findings. Electronically signed by: Red Dodson On 11/13/2020 04:27:44 AM
[2020-11-13] MEDS ORDERED: PRED20TA PO (05:05)
[2020-11-13] MEDS ORDERED: VENTAER INH (05:06)
[2020-11-13 05:15] VITALS: BP 127/71
--- NOTE | 2020-11-13 09:05 | ECGEPIP ---
[facility] - ED Test Date: 2020-11-13 Pat Name: DENNYS DUVAL Department: Room: - Gender: Male Language Arts Teacher: SAMANTHA : 1985 Requested By: LELE Soto Order Number: [id number] Reading MD: Rowan Dean Measurements Intervals [place] Rate: 86 P: 50 MT: 169 QRS: 27 QRSD: 94 T: 43 QT: 358 QTc: 430 Interpretive Statements SINUS RHYTHM No prior Electronically Signed on 11-13-2020 9:05:05 EST by Rowan Dean
== END 2020-11-13 05:20 | disposition home or self-care (01) ==
LOC: M ED 01:15
DX: R06.02 Shortness of breath (principal); R06.2 Wheezing; Z87.891 Personal history of nicotine dependence; Z88.0 Allergy status to penicillin
CPT/HCPCS: 71045; 71275; 80048; 80076; 82550; 82553; 83880; 84443; 84484; 85025; 93005; 93041; 94640; 94760; 96374; 99285; J2930; Q9967

== ENCOUNTER 2022-01-17 14:29 | Emergency (ER) | payer OTHER ==
[~2022-01-17] VITALS: Ht 170.2 cm; Wt 79.8 kg
[~2022-01-17 14:29] MED LIST: PRED20TA PO; VENTAER INH
[2022-01-17] MEDS ORDERED: IBUP-1720 PO (14:48)
[2022-01-17] MEDS ORDERED: TAMS1CAP17 PO (14:48)
[2022-01-17] MEDS ORDERED: ONDANSETRON 4MG/2ML VIAL IV ONE (14:50)
[2022-01-17] MEDS ORDERED: MORPHINE 4 MG/ML 1ML VIAL/SYRINGE (J2270) IV ONE (14:50)
[2022-01-17] MEDS ORDERED: NS 1,000 ML IV ONE (14:50)
[2022-01-17] MEDS ORDERED: KETOROLAC 30 MG/ML 1ML VIAL IV ONE (15:20)
[2022-01-17 15:48] LABS: BASO % 0.3 % (0.0-1.0); EOS # 0.2 10^3/uL (0.0-0.5); EOS % 1.9 % (0.0-3.0); HEMATOCRIT 44.7 % (42.0-52.0); HEMOGLOBIN 15.5 g/dl (13.5-17.5); LYMPH # 2.4 10^3/uL (1.5-5.0); LYMPH % 22.9 % (24.0-44.0); MEAN CORPUSCULAR HEMOGLOBIN 31.4 pg (27.0-33.0); MEAN CORPUSCULAR HGB CONC 34.7 g/dl (32.0-36.5); MEAN CORPUSCULAR VOLUME 90.5 fl (80.0-96.0); MONO % 9.3 % (2.0-8.0); NEUTROPHILS # 6.9 10^3/uL (1.5-8.5); NEUTROPHILS % 65.3 % (36.0-66.0); PLATELET COUNT, AUTOMATED 226 10^3/uL (150-450); RED BLOOD COUNT 4.94 10^6/uL (4.30-6.10); WHITE BLOOD COUNT 10.6 10^3/uL (4.0-10.0)
[2022-01-17 16:08] LABS: CREATININE FOR GFR 1.55 MG/DL (0.70-1.30); GLOMERULAR FILTRATION RATE 53.7 (>60); POTASSIUM SERUM 3.7 MEQ/L (3.5-5.1)
[2022-01-17] MEDS ORDERED: KETO10TAB PO (17:41)
[2022-01-17 17:58] VITALS: BP 137/85
== END 2022-01-17 18:02 | disposition home or self-care (01) ==
LOC: M ED 14:29
DX: N13.1 Hydronephrosis with ureteral stricture, not elsewhere classified (principal); Z88.0 Allergy status to penicillin; Z88.1 Allergy status to other antibiotic agents
CPT/HCPCS: 74176; 80048; 81001; 85025; 96361; 96374; 96375; 99284; J1885; J2270; J2405

== ENCOUNTER 2023-01-05 17:26 | Emergency (ER) | payer OTHER ==
[~2023-01-05] VITALS: Ht 170.2 cm; Wt 80.0 kg
[~2023-01-05 17:26] MED LIST changes: +IBUP-1720 PO; +KETO10TAB PO; +TAMS1CAP17 PO
[2023-01-05] MEDS ORDERED: ACET-841 PO (18:23)
[2023-01-05 20:39] LABS: BASO % 0.2 % (0.0-1.0); EOS # 0.3 10^3/uL (0.0-0.5); EOS % 2.4 % (0.0-3.0); HEMATOCRIT 47.5 % (42.0-52.0); HEMOGLOBIN 16.2 g/dl (13.5-17.5); LYMPH # 2.7 10^3/uL (1.5-5.0); LYMPH % 20.6 % (24.0-44.0); MEAN CORPUSCULAR HEMOGLOBIN 31.1 pg (27.0-33.0); MEAN CORPUSCULAR HGB CONC 34.1 g/dl (32.0-36.5); MEAN CORPUSCULAR VOLUME 91.2 fl (80.0-96.0); MONO # 0.7 10^3/uL (0.0-0.8); MONO % 5.8 % (2.0-8.0); NEUTROPHILS # 9.1 10^3/uL (1.5-8.5); NEUTROPHILS % 70.5 % (36.0-66.0); PLATELET COUNT, AUTOMATED 285 10^3/uL (150-450); RED BLOOD COUNT 5.21 10^6/uL (4.30-6.10); WHITE BLOOD COUNT 12.9 10^3/uL (4.0-10.0)
[2023-01-05 21:24] LABS: BLOOD UREA NITROGEN 14 MG/DL (9-23); CALCIUM LEVEL 8.9 MG/DL (8.5-10.1); CARBON DIOXIDE LEVEL 30 MMOL/L (20-31); CHLORIDE LEVEL 102 MMOL/L (98-107); CREATININE FOR GFR 0.91 MG/DL (0.70-1.30); GLOMERULAR FILTRATION RATE > 60.0 (>60); GLUCOSE, FASTING 91 MG/DL (60-100); POTASSIUM SERUM 3.8 MMOL/L (3.5-5.1); SODIUM LEVEL 140 MMOL/L (136-145)
[2023-01-05] MEDS ORDERED: KETOROLAC 60MG 2ML VIAL IM ONE (21:55)
[2023-01-05] MEDS ORDERED: ONDANSETRON 4MG ORAL DISINTEGRATING TAB PO ONE (21:55)
[2023-01-05] MEDS ORDERED: KETO10TAB PO (23:25)
[2023-01-05] MEDS ORDERED: FLOM0.4C39 PO (23:25)
[2023-01-05 23:30] VITALS: BP 142/85
== END 2023-01-05 23:40 | disposition home or self-care (01) ==
LOC: M ED 17:26
DX: N20.0 Calculus of kidney (principal); R11.10 Vomiting, unspecified
CPT/HCPCS: 74176; 80048; 81001; 85025; 96372; 99284; J1885

== ENCOUNTER 2023-08-17 10:21 | Observation (INO) | payer OTHER ==
[~2023-08-17] VITALS: Ht 170.2 cm; Wt 80.1 kg
[~2023-08-17 10:21] MED LIST changes: +ACET-841 PO; +FLOM0.4C39 PO
[2023-08-17] MEDS ORDERED: ISOVUE-300 61% 100ML VIAL ONE (10:23)
[2023-08-17 12:07] LABS: APPEARANCE, URINE CLOUDY (CLEAR); BACTERIA, URINE AUTO NEGATIVE (NEGATIVE); BILIRUBIN, URINE AUTO NEGATIVE (NEGATIVE); BLOOD, URINE BLOOD 3+ (NEGATIVE); COLOR, URINE RED (YELLOW); GLUCOSE, URINE (UA) AUTO NEGATIVE (NEGATIVE); KETONE, URINE AUTO NEGATIVE (NEGATIVE); LEUKOCYTE ESTERASE, URINE AUTO NEGATIVE (NEGATIVE); NITRITE, URINE AUTO NEGATIVE (NEGATIVE); PROTEIN, URINE AUTO 2+ mg/dL (NEGATIVE); RBC, URINE AUTO TNTC /HPF (0-3); SPECIFIC GRAVITY URINE AUTO 1.015 (1.002-1.035); SQUAMOUS EPITHELIAL CELL UR AU 0 /HPF (0-6); UROBILINOGEN, URINE AUTO 0.2 mg/dL (0.0-2.0); WBC, URINE AUTO TNTC /HPF (0-3)
[2023-08-17 12:11] LABS: BASO % 0.5 % (0.0-1.0); EOS # 0.7 10^3/uL (0.0-0.5); EOS % 8.2 % (0.0-3.0); HEMATOCRIT 43.3 % (42.0-52.0); HEMOGLOBIN 15.5 g/dl (13.5-17.5); LYMPH # 2.7 10^3/uL (1.5-5.0); MEAN CORPUSCULAR HEMOGLOBIN 32.2 pg (27.0-33.0); MEAN CORPUSCULAR HGB CONC 35.8 g/dl (32.0-36.5); MONO # 0.6 10^3/uL (0.0-0.8); MONO % 6.5 % (2.0-8.0); NEUTROPHILS # 4.7 10^3/uL (1.5-8.5); NEUTROPHILS % 53.5 % (36.0-66.0); PLATELET COUNT, AUTOMATED 250 10^3/uL (150-450); RED BLOOD COUNT 4.81 10^6/uL (4.30-6.10); WHITE BLOOD COUNT 8.7 10^3/uL (4.0-10.0)
[2023-08-17 12:41] LABS: ALBUMIN 4.3 G/DL (3.2-5.2); ALKALINE PHOSPHATASE 126 U/L (46-116); ALT/SGPT 47 U/L (7.0-40); AST/SGOT 20 U/L (<34); BILIRUBIN,DIRECT 0.1 MG/DL (<0.4); BILIRUBIN,TOTAL 0.5 MG/DL (0.3-1.2); BLOOD UREA NITROGEN 16 MG/DL (9-23); CALCIUM LEVEL 8.9 MG/DL (8.5-10.1); CARBON DIOXIDE LEVEL 26 MMOL/L (20-31); CHLORIDE LEVEL 107 MMOL/L (98-107); GLOMERULAR FILTRATION RATE > 60.0 (>60); GLUCOSE, FASTING 97 MG/DL (60-100); POTASSIUM SERUM 3.8 MMOL/L (3.5-5.1); SODIUM LEVEL 139 MMOL/L (136-145); TOTAL PROTEIN 7.5 G/DL (5.7-8.2)
[2023-08-17] MEDS ORDERED: ONDANSETRON 4MG 2ML VIAL IV ONE (14:45)
[2023-08-17] MEDS ORDERED: KETOROLAC 30 MG/ML 1ML VIAL IV ONE (14:45)
[2023-08-17] MEDS ORDERED: NS 1,000 ML IV ONE (14:45)
[2023-08-17] MEDS ORDERED: CIPROFLOXACIN 400 MG in IV 1 EA IV ONE (16:35)
[2023-08-17] MEDS ORDERED: MED REC IN PROGRESS XX SCH (16:50)
[2023-08-17] MEDS ORDERED: MOM 30ML SUSPENSION UDC PO PRN (17:00)
[2023-08-17] MEDS ORDERED: MORPHINE 4 MG/ML 1ML VIAL IV PRN (17:00)
[2023-08-17] MEDS ORDERED: ACETAMINOPHEN TAB 650MG DOSE (2X325MG) PO PRN (17:00)
[2023-08-17 18:53] LABS: INR 1.04; PROTHROMBIN TIME 13.3 SECONDS (12.5-14.5)
[2023-08-17] MEDS ORDERED: IBUP200T46 PO (18:59)
[2023-08-17] MEDS ORDERED: ACET-897 PO (18:59)
[2023-08-17] MEDS ORDERED: HOME MED LIST COMPLETE! XX SCH (19:00)
[2023-08-17] MEDS ORDERED: KETOROLAC 30 MG/ML 1ML VIAL IV PRN (20:00)
[2023-08-17] MEDS ORDERED: TAMSULOSIN 0.4 MG CAP PO SCH (21:00)
[2023-08-17] MEDS: DOCUSATE SODIUM 100MG CAPSULE PO SCH (21:00)
[2023-08-17] MEDS: KETOROLAC 30 MG/ML 1ML VIAL IV PRN (21:26)
[2023-08-17 21:29] VITALS: BP 142/91; TEMP 98.2; O2SAT 99
[2023-08-18 03:46] VITALS: BP 116/83; TEMP 97.5; O2SAT 97
[2023-08-18] MEDS ORDERED: CIPROFLOXACIN 500MG TABLET PO SCH (06:00)
[2023-08-18 07:18] LABS: HEMATOCRIT 42.5 % (42.0-52.0); HEMOGLOBIN 14.8 g/dl (13.5-17.5); MEAN CORPUSCULAR HEMOGLOBIN 31.6 pg (27.0-33.0); MEAN CORPUSCULAR HGB CONC 34.8 g/dl (32.0-36.5); MEAN CORPUSCULAR VOLUME 90.6 fl (80.0-96.0); PLATELET COUNT, AUTOMATED 244 10^3/uL (150-450); RED BLOOD COUNT 4.69 10^6/uL (4.30-6.10); WHITE BLOOD COUNT 7.1 10^3/uL (4.0-10.0)
[2023-08-18 07:38] LABS: BLOOD UREA NITROGEN 14 MG/DL (9-23); CALCIUM LEVEL 8.4 MG/DL (8.5-10.1); CARBON DIOXIDE LEVEL 28 MMOL/L (20-31); CHLORIDE LEVEL 108 MMOL/L (98-107); CREATININE FOR GFR 1.07 MG/DL (0.70-1.30); GLOMERULAR FILTRATION RATE > 60.0 (>60); GLUCOSE, FASTING 91 MG/DL (60-100); POTASSIUM SERUM 3.8 MMOL/L (3.5-5.1); SODIUM LEVEL 143 MMOL/L (136-145)
[2023-08-18 08:00] VITALS: BP 129/76; TEMP 97.1; O2SAT 98
[2023-08-18] MEDS: KETOROLAC 30 MG/ML 1ML VIAL IV PRN ×2 (08:36→17:50)
[2023-08-18] MEDS: DOCUSATE SODIUM 100MG CAPSULE PO SCH (08:37)
[2023-08-18] MEDS ORDERED: propofoL 200 MG/20 ML VIAL As Ordered ONE (14:52)
[2023-08-18] MEDS ORDERED: fentaNYL 100 MCG/2 ML INJECTION As Ordered ONE (14:52)
[2023-08-18] MEDS ORDERED: LIDOCAINE 2% 100MG/5ML SDV (FOR ANES.) As Ordered ONE (14:52)
[2023-08-18] MEDS ORDERED: MIDAZOLAM INJ 2MG/2ML VIAL As Ordered ONE (14:52)
[2023-08-18] MEDS ORDERED: ONDANSETRON 4MG 2ML VIAL As Ordered ONE (14:53)
[2023-08-18] MEDS ORDERED: ACETAMINOPHEN 1000MG 100ML IV BAG As Ordered ONE (15:50)
[2023-08-18] MEDS ORDERED: KETOROLAC 60MG 2ML VIAL As Ordered ONE (15:57)
[2023-08-18] MEDS ORDERED: OXYB5TAB11 PO (16:13)
[2023-08-18] MEDS ORDERED: CIPR500T39 PO (16:13)
[2023-08-18] MEDS ORDERED: PYRI1TAB5 PO (16:13)
[2023-08-18 17:05] VITALS: BP 117/74; TEMP 97.8; O2SAT 98
[2023-08-18 17:35] VITALS: BP 144/81; TEMP 97.3; O2SAT 98
== END 2023-08-18 18:39 | disposition home or self-care (01) ==
LOC: M ED 10:21 → M ED INP 10:22 → M PCU 21:20
PROVIDERS: ADMIT Student in an Organized Health Care Education/Training Program; ATTEND Student in an Organized Health Care Education/Training Program
DX: N20.1 Calculus of ureter (principal); R31.9 Hematuria, unspecified; N39.0 Urinary tract infection, site not specified; Z87.442 Personal history of urinary calculi; F32.A Depression, unspecified; Z88.0 Allergy status to penicillin; Z88.1 Allergy status to other antibiotic agents
CPT/HCPCS: 36415; 52332; 52351; 74176; 76000; 80048; 80076; 81001; 85025; 85027; 85610; 87635; 96374; 96375; 96376; 99284; C1769; C1894; C2617; J0131; J0744; J1100; J1885; J2250; J2405; J3010; Q9967

== ENCOUNTER → 2023-09-03 | Outpatient (REF) | payer OTHER ==
[~2023-09-03] MED LIST changes: +ACET-897 PO; +CIPR500T39 PO; +IBUP200T46 PO; +OXYB5TAB11 PO; +PYRI1TAB5 PO
== END ==
LOC: M SMT 17:03
PROVIDERS: ATTEND Urology
DX: N20.1 Calculus of ureter (principal)

== ENCOUNTER 2023-09-10 09:25 | Day surgery (SDC) | payer OTHER ==
[~2023-09-10] VITALS: Ht 170.2 cm; Wt 81.7 kg
[~2023-09-10 09:25] MED LIST changes: +ADVA230A INH; +PROA1AER2 INH; +ceFAZolin SOD 2 GM in IV 1 EA IV ONE
[2023-09-10] MEDS ORDERED: LR 1,000 ML IV SCH ×2 (09:40→12:40)
[2023-09-10] MEDS ORDERED: ISOVUE-300 61% 100ML VIAL As Ordered ONE (11:37)
[2023-09-10] MEDS ORDERED: LIDOCAINE 2% 100MG/5ML SDV (FOR ANES.) As Ordered ONE (12:00)
[2023-09-10] MEDS ORDERED: MIDAZOLAM INJ 2MG/2ML VIAL As Ordered ONE (12:00)
[2023-09-10] MEDS ORDERED: KETOROLAC 60MG 2ML VIAL As Ordered ONE (12:00)
[2023-09-10] MEDS ORDERED: fentaNYL 100 MCG/2 ML INJECTION As Ordered ONE (12:00)
[2023-09-10] MEDS ORDERED: ACETAMINOPHEN 1000MG 100ML IV BAG As Ordered ONE (12:00)
[2023-09-10] MEDS ORDERED: propofoL 200 MG/20 ML VIAL As Ordered ONE (12:00)
[2023-09-10] MEDS ORDERED: ONDANSETRON 4MG 2ML VIAL As Ordered ONE (12:00)
[2023-09-10] MEDS ORDERED: dexmedeTOMIDine (4MCG/ML)200MCG/50ML BTL (PRECEDEX) As Ordered ONE (12:00)
[2023-09-10] MEDS ORDERED: oxyCODONE 5MG TAB PO PRN (12:40)
[2023-09-10] MEDS ORDERED: fentaNYL 100 MCG/2 ML INJECTION IV PRN (12:40)
[2023-09-10] MEDS ORDERED: HYDROMORPHONE HCL 0.5 MG/ 0.5 ML SYRINGE IV PRN (12:40)
[2023-09-10] MEDS ORDERED: ONDANSETRON 4MG 2ML VIAL IV PRN (12:40)
[2023-09-10] MEDS ORDERED: OXYB5TAB11 PO (12:45)
[2023-09-10] MEDS ORDERED: PYRI1TAB5 PO (12:45)
[2023-09-10] MEDS ORDERED: MACR100C43 PO (12:45)
[2023-09-10 13:58] VITALS: BP 123/78; TEMP 98.1; O2SAT 100
== END 2023-09-10 14:16 | disposition home or self-care (01) ==
LOC: M SDC 09:25
PROVIDERS: ATTEND Urology
DX: N20.1 Calculus of ureter (principal); J45.909 Unspecified asthma, uncomplicated; Z79.899 Other long term (current) drug therapy; Z79.51 Long term (current) use of inhaled steroids; Z88.0 Allergy status to penicillin; Z88.1 Allergy status to other antibiotic agents
CPT/HCPCS: 52332; 52352; 52356; 76000; 82365; C1769; C1894; C2617; J0131; J0690; J1100; J1885; J2250; J2405; J3010; Q9967

== ENCOUNTER → 2023-09-22 | Outpatient (REF) | payer OTHER ==
[~2023-09-22] MED LIST changes: +MACR100C43 PO; -ceFAZolin SOD 2 GM in IV 1 EA IV ONE
[2023-10-01 20:11] LABS: CA Oxalate Dihy 70 % (.); Ca Ox Monohydrate 25 % (.); Size 6x7 mm (.)
== END ==
LOC: M SMT 17:00
PROVIDERS: ATTEND Urology
DX: N20.0 Calculus of kidney (principal)

== ENCOUNTER 2024-03-17 09:55 | Day surgery (SDC) | payer OTHER ==
[~2024-03-17] VITALS: Ht 170.2 cm; Wt 80.7 kg
[~2024-03-17 09:55] MED LIST changes: -OXYB5TAB11 PO; +OXYB5TAB14 PO; +propofoL 200 MG/20 ML VIAL As Ordered ONE
[2024-03-17] MEDS ORDERED: LR 1,000 ML IV SCH (10:55)
[2024-03-17] MEDS ORDERED: ACETAMINOPHEN 1000MG 100ML IV BAG As Ordered ONE (12:07)
[2024-03-17] MEDS ORDERED: MIDAZOLAM INJ 2MG/2ML VIAL As Ordered ONE (12:08)
[2024-03-17] MEDS ORDERED: KETOROLAC 60MG 2ML VIAL As Ordered ONE (12:08)
[2024-03-17] MEDS ORDERED: fentaNYL 100 MCG/2 ML INJECTION As Ordered ONE (12:08)
[2024-03-17] MEDS: ceFAZolin SOD 2 GM in IV 1 EA IV ONE (13:30)
[2024-03-17 13:37] VITALS: BP 131/79; TEMP 98.6; O2SAT 100
== END 2024-03-17 13:48 | disposition home or self-care (01) ==
LOC: M SDC 09:55
PROVIDERS: ATTEND Urology
DX: N20.0 Calculus of kidney (principal); Z53.8 Procedure and treatment not carried out for other reasons; Z88.0 Allergy status to penicillin; Z88.1 Allergy status to other antibiotic agents; Z87.891 Personal history of nicotine dependence; Z87.442 Personal history of urinary calculi
CPT/HCPCS: 50590; 74018; J0131; J0690; J1885; J2250; J3010